=== PATIENT | female | born 1985 | race Two or more races ===

== ENCOUNTER 2019-04-13 10:12 | Emergency (ER) | payer OTHER ==
[~2019-04-13] VITALS: Ht 160 cm; Wt 97.5 kg
== END 2019-04-13 14:31 | disposition home or self-care (01) ==
LOC: ER 10:12
DX: B33.8 Other specified viral diseases (principal); B96.0 Mycoplasma pneumoniae [M. pneumoniae] as the cause of diseases classified elsewhere

== ENCOUNTER 2019-06-09 09:58 | Outpatient (CLI) | payer OTHER | END 2019-06-09 10:10 | disposition home or self-care (01) | LOC: LAB 09:58 | DX: Z12.11 Encounter for screening for malignant neoplasm of colon (principal); Z80.0 Family history of malignant neoplasm of digestive organs; Z13.6 Encounter for screening for cardiovascular disorders; Z00.00 Encounter for general adult medical examination without abnormal findings; Z80.3 Family history of malignant neoplasm of breast ==

== ENCOUNTER 2021-04-09 23:12 | Emergency (ER) | payer OTHER ==
[~2021-04-09] VITALS: Ht 160 cm; Wt 102.1 kg
[2021-04-09] MEDS ORDERED: COZAAR25 MG (23:41)
[2021-04-10] MEDS ORDERED: INTESTINEX680 M1 PO (05:23)
[2021-04-10] MEDS ORDERED: LEVSIN/SL0.125 MG SL (05:23)
[2021-04-10] MEDS ORDERED: CIPRO500 MG PO (05:23)
[2021-04-10] MEDS ORDERED: ZOFRAN8 MG PO (05:23)
== END 2021-04-10 05:30 ==
LOC: ER 23:12
DX: K52.89 Other specified noninfective gastroenteritis and colitis (principal); R30.0 Dysuria; R10.11 Right upper quadrant pain